=== PATIENT | male | born 1940 ===

== ENCOUNTER → 2024-02-13 | Outpatient (CLI) | payer MEDICARE, BC | END | disposition home or self-care (01) | LOC: Rad HDHVI 08:12 | PROVIDERS: ATTEND Internal Medicine Cardiovascular Disease | DX: I08.3 Combined rheumatic disorders of mitral, aortic and tricuspid valves (principal); I10 Essential (primary) hypertension | CPT/HCPCS: 93306 ==

== ENCOUNTER → 2024-02-17 | Outpatient (CLI) | payer MEDICARE, BC ==
[~2024-02-17] VITALS: Ht 182.9 cm; Wt 108.0 kg
== END | disposition home or self-care (01) ==
LOC: Rad HDHVI 08:26
PROVIDERS: ATTEND Internal Medicine Cardiovascular Disease
DX: I10 Essential (primary) hypertension (principal); E78.5 Hyperlipidemia, unspecified; Z79.899 Other long term (current) drug therapy
CPT/HCPCS: 78452; 93017; 96374; A9500

== ENCOUNTER → 2024-03-04 | Outpatient (CLI) | payer MEDICARE, BC | END | disposition home or self-care (01) | LOC: Rad HDHVI 10:01 | PROVIDERS: ATTEND Internal Medicine Cardiovascular Disease | DX: I10 Essential (primary) hypertension (principal) | CPT/HCPCS: 93880 ==